=== PATIENT | male | born 1995 | race Caucasian/White ===

== ENCOUNTER 2019-01-29 10:36 | Outpatient (CLI) | payer BC, SELFPAY ==
[2019-01-29 11:13] LABS: Abs Immature Grans 0.01 k/cumm (0.0-0.09); Absolute Basophil Count 0.02 k/cumm (0.0-0.2); Absolute Eosinophil Count 0.08 k/cumm (0.0-0.7); Absolute Lymphocyte Count 1.45 k/cumm (1.2-3.4); Absolute Monocyte Count 0.58 k/cumm (0.11-0.7); Absolute Neutrophil Count 2.94 k/cumm (1.2-6.7); Basophils % 0.4; Eosinophils % 1.6; HCT 47.1 % (40.0-50.0); HGB 15.6 g/dL (13.5-17.5); Immature Grans % 0.2; Lymphocytes % 28.5; Mean Corp. HGB Concentration 33.1 g/dL (32.0-36.0); Mean Corpuscular Hemoglobin 29.3 pg (27.0-33.0); Mean Corpuscular Volume 88.4 fL (80-95); Mean Platelet Volume 9.5 fL (8.0-11.0); Monocytes % 11.4; Neutrophils % 57.9; Platelet Count 281 x1000/uL (130-400); RBC 5.33 m/cumm (4.50-6.00); RBC Distribution Width 13.3 % (11.8-14.1); White Blood Cell Count 5.08 k/cumm (4.4-10.8)
[2019-01-29 12:55] LABS: ALT 28 U/L (16-63); AST 35 U/L (15-37); Albumin 4.4 g/dL (3.4-5.0); Alkaline Phosphatase 89 U/L (46-116); Anion Gap 9.4 mmol/L (3-11); BUN 23 mg/dL (7-18); Bilirubin, Total 0.6 mg/dL (0.2-1.0); CO2 27.6 mmol/L (21.0-32.0); CREATININE 1.03 mg/dL (0.70-1.30); Calcium 9.1 mg/dL (8.5-10.1); Chloride 104 mmol/L (98-107); Glucose 89 mg/dL (74-106); Potassium 4.3 mmol/L (3.5-5.1); Sodium 141 mmol/L (136-145); TSH (W/Ref FT4) 1.62 uIU/mL (0.36-3.74); Total Protein 7.4 g/dL (6.4-8.2)
[2019-01-31 11:28] LABS: EBNA IgG Positive (Negative); EBV Interpretation (See Note); VCA IgG Positive (Negative); VCA IgM Negative (Negative)
[2019-01-31 11:47] LABS: Lyme Ab w Rflx to Lyme Confirm Negative (Negative)
[2019-01-31 16:57] LABS: Anaplasma phagocytophilum Negative (Negative); B. miyamotoi PCR Negative (Negative); Babesia divergens/MO-1 Negative (Negative); Babesia duncani Negative (Negative); Babesia microti Negative (Negative); Ehrlichia chaffeensis Negative (Negative); Ehrlichia ewingii/canis Negative (Negative); Ehrlichia muris eauclairensis Negative (Negative)
== END 2019-01-29 10:56 ==
PROVIDERS: PCP Pediatrics; Visit Provider Nurse Practitioner Family
DX: R53.83 Other fatigue (principal)
CPT/HCPCS: 36415; 80053; 87798; 84443; 85025; 86618; 86664; 86665; 93005; 93010

== ENCOUNTER 2019-08-31 22:07 | Emergency (ER) | payer BC, SELFPAY ==
[2019-08-31 22:09] VITALS: BP 146/70; PULSE 56; RESP 18; TEMP 37.1; O2SAT 97
--- NOTE | 2019-08-31 22:10 | ED.GENADUL_ITS ---
Discharge Plan Disposition Patient Disposition: HOME Condition: Stable Discharge Details Chief Complaint: EarProblem Clinical Impression: Otitis externa Primary Care Provider: Anai Johnson V ED Provider: Bruce Starks Home Meds and New Rx's Prescriptions: New Cortisporin-TC 3.3-3-10-0.5 mg/mL drops,suspension 4 drp OT QID 7 Days Qty: 1 RF: 0 Continued multivitamin Tablet 1 tab PO DAILY RF: 0 Discharge Instructions Instructions: Otitis Externa (ED) Additional Instructions: Cortisporin as directed. [id number] Tylenol and/or Motrin as directed for discomfort. Avoid getting water in your ear. Please watch for new or worsening symptoms and return to the ER for any concerns. I do recommend following up with ENT when you return home to [place] if symptoms persist Medical Decision Making 23-year-old gentleman presents for left ear discomfort. Examination is consistent with otitis externa. No mastoid tenderness. Patient appears well, nontoxic. Will provide prescription for Cortisporin HC otic. Patient has additional questions or concerns and is comfortable discharge. Medical Records Medical records reviewed: Yes I reviewed the patient's medical records. HPI General Mode of arrival: ambulatory . Date/Time Provider Initiated Documentation: 08/31/19 22:10 . Limitations to Documentation: no limitations . Information obtained by: patient . HPI Narrative: 23-year-old gentleman who reports left ear pressure-moderate pain for the past couple of hours. He reports similar symptoms roughly 2 months ago and he was treated with eardrop antibiotics, unsure of the exact name. He denies recent swimming. No other symptoms. He does primarily live in [place] but is up here for a while. Denies any fever, sore throat, shortness of breath, cough. Related Data Home Medications Medication Instructions Recorded Confirmed multivitamin 1 tab PO DAILY 01/29/19 08/31/19 gpuoixqc-keoseu-VO-thonzonium 4 drp OT QID 7 Days #1 ml 08/31/19 [Cortisporin-TC] Previous Rx's Medication Instructions Recorded edewfrxj-tsorge-CZ-thonzonium 4 drp OT QID 7 Days #1 ml 08/31/19 [Cortisporin-TC] Allergies Allergy/AdvReac Type Severity Reaction Status Date / Time No Known Allergies Allergy Verified 01/29/19 10:08 Review of Systems Constitutional Constitutional: Denies fever(s) and Denies headache(s) Eyes Eyes: Denies eye discharge ENT Ears, Nose, Mouth, and Throat: Reports otalgia, Denies headache(s) and Denies neck pain Cardiovascular Cardiovascular: Denies chest pain and Denies dyspnea Respiratory Respiratory: Denies cough and Denies dyspnea Musculoskeletal Musculoskeletal: Denies neck pain Integumentary/Breasts Skin/Breast: Denies rash Neurologic Neurologic: Denies headache(s) [facility] Medical History SVT (supraventricular tachycardia) s/p ablation 2012 Surgical History 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 Family History Mother Healthy adult Father Healthy adult Social History Smoking/Tobacco Use Status: Never Alcohol Intake: current Alcohol Intake frequency: a few times a week Drug use: Never Substance use type: does not use Do you feel safe at home: Yes Do you feel safe in your relationship?: Yes Exam Const General: cooperative, healthy appearing, comfortable and no acute distress Orientation: alert and awake [facility] Head: normal to inspection, normocephalic and atraumatic Ears: external ears normal, TM's normal bilaterally, EAC's normal (Right side), mastoids normal, no periauricular adenopathy and EAC abnormal erythema on the left, edema on the left and otic discharge purulent on the left Face and sinus: normal facial exam Mouth: oral mucosae normal and moist mucous membranes Throat: posterior oropharynx normal Eyes Conjunctivae: conjunctivae normal Sclera: sclerae normal Neck Neck: normal visual inspection, full ROM, no lymphadenopathy, no meningeal signs, trachea midline, supple and nontender Resp Effort & Inspection: normal respiratory effort and able to speak in complete sentences Auscultation: clear to auscultation bilaterally Cardio Rate: regular rate Rhythm: regular rhythm Skin General skin exam: no rashes or lesions noted Neuro General: patient alert, patient awake, moves all extremities and no focal motor deficits Sensory Exam: no sensory deficits noted Psych Appearance: grossly normal Mental Status: mental status grossly normal
[2019-08-31] MEDS: Cortisporin OTIC SUSP 10 ML BTL AD (22:22)
== END 2019-08-31 22:30 | disposition home or self-care (01) ==
PROVIDERS: Emergency Provider Physician Assistant; PCP Pediatrics
DX: H60.392 Other infective otitis externa, left ear (principal)
CPT/HCPCS: 99283

== ENCOUNTER 2022-08-29 12:55 | Emergency (ER) | payer BC, SELFPAY ==
[2022-08-29 12:57] VITALS: BP 137/65; PULSE 55; RESP 16; TEMP 36.4; O2SAT 99
--- NOTE | 2022-08-29 13:19 | ED.GENADUL_ITS ---
Discharge Plan Disposition Patient Disposition: Home Condition: Good Discharge Details Clinical Impression: Strain of foot, left Primary Care Provider: Unknown,Unknown ED Provider: Bill Magallanes Home Meds and New Rx's Prescriptions: New naproxen sodium 275 mg tablet 275 mg PO Q8H PRN (Reason: pain) Qty: 20 0RF Continued multivitamin Tablet 1 tab PO DAILY Discharge Instructions Instructions: Crutch Instructions (ED) Discharge Data Discharge Physician: Bill Magallanes Medical Decision Making Patient who sustained trauma to his left foot at the level of the left great toe and left first metatarsal who had an x-ray done which shows no fracture or dislocation. Probably has a foot strain and he will be placed on crutches and giving NSAIDs and will follow with his primary care physician. Differential Diagnosis Differential Diagnosis: 1. Metatarsal fracture 2. Toe fracture 3. Toe dislocation Medical Records Medical records reviewed: Yes I reviewed the patient's medical records. Imaging Data Radiologic Study: Attestation: I personally reviewed and interpreted this imaging study as follows: Imaging: X-Ray My impression: No acute fracture or dislocation Radiologist's impression: Launch?Image Patient Name: Orlando Ny Unit #: [id number] Loc: ER ? Ordering Provider:? Bill Magallanes M.D. Status: REG ER ? Primary Care Provider: Unknown,Unknown Date of Exam: 08/29/22 Sex: M ? Admission Date: 08/29/22? : 1995 ? Age: 26 ? Exam(s) XR FOOT LT COMPLETE EXAM:? XR FOOT LT COMPLETE CLINICAL HISTORY: ? left foot injury to left great toe? metatarsal.? TECHNIQUE:? 2D digital imaging was performed.? Three views. COMPARISON:? CR RIGHT FOOT COMPLETE from 08/27/2016 FINDINGS: BONES: No acute fracture is present. No bony destructive lesion is seen. JOINTS: No dislocation present. SOFT TISSUE: Mild swelling at 1st metatarsal head. IMPRESSION: Unremarkable radiographs of the left foot. DATA REPOSITORY:? RADIATION DOSE DELIVERED:? Ordered By:? Bill Magallanes M.D. CC: ? Dictated By: Shauna Guthrie M.D. ? 08/29/22 1420 ? <Electronically signed by Shauna Guthrie M.D. in [place]> ? 08/29/22 1420 Transcribed By: Shauna Guthrie?? HPI General Date/Time Provider Initiated Documentation: 08/29/22 13:16 . HPI Narrative: Department patient presents to the emergency department complaining of left great toe pain and dorsal aspect of the foot pain after he was playing soccer yesterday and that he landed on his toe and heard a snap and felt that the toe got dislocated but slammed back into place. Reports he had severe pain yesterday but today the pain is about a 6/10 but it continues and swollen and is tender to bear weight. Related Data Home Medications Medication Instructions Recorded Confirmed multivitamin 1 tab PO DAILY 01/29/19 08/29/22 naproxen sodium 275 mg tablet 275 mg PO Q8H PRN pain #20 tabs 08/29/22 Previous Rx's Medication Instructions Recorded naproxen sodium 275 mg tablet 275 mg PO Q8H PRN pain #20 tabs 08/29/22 Allergies Allergy/AdvReac Type Severity Reaction Status Date / Time No Known Allergies Allergy Verified 08/29/22 13:01 General Stated Complaint: Orthopedic BRIDGER: 4 Review of Systems All systems reviewed & are unremarkable except as noted in HPI and below Eyes Eyes: Reports system reviewed and no additional complaints, except as documented Cardiovascular Cardiovascular: Reports as per HPI and Reports system reviewed and no additional complaints, except as documented Respiratory Respiratory: Reports system reviewed and no additional complaints, except as documented Gastrointestinal Gastrointestinal: Reports system reviewed and no additional complaints, except as documented Musculoskeletal Musculoskeletal: Reports system reviewed and no additional complaints, except as documented Neurologic Neurologic: Reports system reviewed and no additional complaints, except as documented PFSH All Active Problems (Updated 08/29/22 @ 14:33 by Bill Magallanes MD) Strain of foot, left (Acute) Medical History (Updated 08/29/22 @ 14:33 by Bill Magallanes MD) SVT (supraventricular tachycardia) s/p ablation 2012 Surgical History 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 [place] transportation Exam Narrative Exam Narrative: Exam; vitals signs as reported above Constitutional; In no acute distress, afebrile General: cooperative, healthy appearing, comfortable and no acute distress HENMT: Head: normal to inspection, no palpable skull fracture and normocephalic Eyes: l: appearance normal, both eyes and all related structures ]Pupils: PERRL EOM: EOM intact bilaterally Direct ophthalmoscopy: normal light reflex, normal conjunctiva, normal visual acuity Neck no JVD, supple Neck: normal visual inspection, full ROM and no lymphadenopathy Chest Chest: normal inspection of the chest Respiratory : normal respiratory effort and able to speak in complete sentences Cardio Rate: regular rate Rhythm: regular rhythm normal heart sounds S1 and S2 no murmurs, gallops, or rubs GI Inspection: normal to inspection, normal bowel sounds, soft, non tender, non distended, no organomegally Back/Spine/ no CVA tenderness Thoracic/Lumbar Spine: no tenderness or deformities Skin no rashes or lesions Neuro: patient alert and no meningeal signs, Cranial Nerves: CN's II-XI intact bilaterally, Cognition: normal cognition, Speech: speech normal, Gait: normal gait, Depp tendon reflexes normal 2+ Extremities, no edema, full range of motion, normal strength tenderness to palpation in the dorsal aspect of the left foot at the level of the base of the great toe Course Patient who injured his left great toe playing soccer in his left foot who declined pain medications in the emergency department Vital Signs Vital signs: Vital Signs Temperature 36.4 C L 08/29/22 12:57 Pulse 55 L 08/29/22 12:57 Respiratory Rate 16 08/29/22 12:57 Blood Pressure 137/65 08/29/22 12:57 Pulse Oximetry 99 08/29/22 12:57 Temperature 36.4 C L 08/29/22 12:57 Pulse 55 L 08/29/22 12:57 Respiratory Rate 16 08/29/22 12:57 Respiratory Effort Normal, Non-Labored 08/29/22 13:02 Blood Pressure 137/65 08/29/22 12:57 Pulse Oximetry 99 08/29/22 12:57 Oxygen Delivery Method Room Air 08/29/22 12:57 Oxygen Flow Rate 0 08/29/22 12:57 Pain Level 9 08/29/22 12:57 PAWSS Have you Been Recently Intoxicated or Drunk Within the Last 30 days?: No Have you Ever Experienced Previous Episodes of Alcohol Withdrawal?: No Have you ever Experienced Withdrawal Seizures?: No Have you ever Experienced Delirium Tremens(DT)s?: No Have you ever undergone Alcohol Rehabilitation Treatment (i.e, inpt ot outpatient treatment programs)?: No Have you ever Experienced Blackouts?: No Have you ever Combined Alcohol with other Downers within the last 90 days?: No Have you ever Combined Alcohol with any other Substance of Abuse during the last 90 days?: No Positive Blood Alcohol level on Presentation? [PCS.BAL]: No Evidence of Increased Autonomic Activity (i.e. HR>120, tremor, sweating, agitation, nausea)?: No Result: 0
--- NOTE | 2022-08-29 13:30 | DI.RAD_ITS ---
Exam(s) XR FOOT LT COMPLETE EXAM: XR FOOT LT COMPLETE CLINICAL HISTORY: left foot injury to left great toe metatarsal. TECHNIQUE: 2D digital imaging was performed. Three views. COMPARISON: CR RIGHT FOOT COMPLETE from 08/27/2016 FINDINGS: BONES: No acute fracture is present. No bony destructive lesion is seen. JOINTS: No dislocation present. SOFT TISSUE: Mild swelling at 1st metatarsal head. IMPRESSION: Unremarkable radiographs of the left foot. DATA REPOSITORY: RADIATION DOSE DELIVERED:
--- NOTE | 2022-08-29 15:37 | NUR.NOTE ---
Nursing Note: [facility] called stating they did not have the strength Naproxen that was prescribed. Per Dr Magallanes it can be changed to 375mg.
== END 2022-08-29 15:14 | disposition home or self-care (01) ==
PROVIDERS: Emergency Provider Emergency Medicine Emergency Medical Services
DX: S96.912A Strain of unspecified muscle and tendon at ankle and foot level, left foot, initial encounter (principal); Y99.8 Other external cause status; Y93.66 Activity, soccer
CPT/HCPCS: 99283; 73630